=== PATIENT | male | born 1960 | race African-American/Black ===

== ENCOUNTER 2021-03-10 15:39 | Emergency (ER) | payer MEDICAID, OTHER ==
[~2021-03-10] VITALS: Ht 177.8 cm; Wt 70.3 kg
[2021-03-10 16:53] LABS: Basophils # (auto) 0 10 ^3/uL (0-0.2); Basophils % (auto) 0.6 % (0.0-2.0); Eosinophils # (auto) 0.1 10 ^3/uL (0-0.8); Eosinophils % (auto) 0.7 % (0.0-7.0); Hematocrit 43.8 % (41.0-53.0); Hemoglobin 15.2 g/dL (13.5-17.5); Lymphocytes % (auto) 25.8 % (10.0-50.0); Mean Corpuscular Hemoglobin 34.1 pg (28.0-32.0); Mean Corpuscular Hgb Conc. 34.7 g/dL (32.0-36.0); Mean Corpuscular Volume 98.3 fL (80.0-100.0); Monocytes # (auto) 0.8 10 ^3/uL (0-1.3); Neutrophils % (auto) 62.9 % (37.0-80.0); Nucleated Red Blood Cells % 0.1 %; Red Blood Cells 4.45 10^6/uL (4.5-5.90); Red Cell Distribution Width 12.8 % (11.8-14.3); White Blood Cell 7.9 10^3/uL (4.4-10.8)
[2021-03-10 17:13] LABS: Albumin 4.2 g/dL (3.4-5.0); Potassium 3.6 mmol/L (3.5-5.1)
[2021-03-10 17:17] LABS: BUN/Creatinine Ratio 14.6; Bilirubin, Total 1.2 mg/dL (0.2-1.0)
[2021-03-10] MEDS ORDERED: ACETAMINOPHEN 325 MG TAB PO ONE (20:00)
[2021-03-11 03:20] VITALS: BP 138/69
== END 2021-03-11 03:26 | disposition home or self-care (01) ==
LOC: ER 15:39
DX: K64.9 Unspecified hemorrhoids (principal); R06.00 Dyspnea, unspecified
CPT/HCPCS: 36415; 71045; 80053; 85025; 93005

== ENCOUNTER 2024-11-25 18:37 | Emergency (ER) | payer MEDICAID ==
[~2024-11-25] VITALS: Ht 175.3 cm; Wt 64.1 kg
--- NOTE | 2024-11-25 19:54 | ED.PDOC ---
History of Present Illness HPI Comments 64-year-old male who came to ER for weakness. Patient coming in with multiple complaints. States he a the ground level fall around 3:00 p.m. today, fell on his feet and his back area. Denies any head trauma or loss of consciousness. Complaining of left-sided tinnitus for over 3 days. Complaining of headaches, slurring of speech, dizziness, and near syncopal attacks. Denies any acute chest pains or shortness a breath. Patient currently applying otic drops to his left ear. REVIEW OF SYSTEMS: General: No fever, no chills, or fatigue HEENT: No sore throat, no earache, (+) left tinnitus, no congestion, no neck pain. Cardiac: No chest pain. No palpitations. Lungs: No shortness of breath, no cough. GI: No nausea, no vomiting, no diarrhea, no constipation, no abdominal pain : No dysuria, frequency, or urgency. No hematuria. Musculoskeletal: No joint pain , no joint swelling, no extremity edema. Skin: No rash, no itching. Neuro: (+) headache, (+) dizziness, (+) weakness EXAM: General: Awake, alert and oriented. No acute distress. Skin: Skin in warm, dry and intact. Appropriate color for ethnicity. HEENT: The head is normocephalic and atraumatic. Conjunctivae are clear without exudates or hemorrhage. Sclera is non-icteric. EOM are intact. No signs of nystagmus. Eyelids are normal in appearance without swelling or lesions. Oral mucosa is pink and moist Neck: The neck is supple with normal range of motion. No JVD. Cardiac: Heart rate and rhythm are normal. No murmurs, gallops, or rubs are aus cultated. Respiratory: No signs of respiratory distress. Lung sounds are clear in all lobes bilaterally without rales, rhonchi, or wheezes. Abdominal: Abdomen is soft, non-tender without distention. Bowel sounds are present and normoactive in all four quadrants. Extremities: Upper and lower extremities are atraumatic in appearance without deformity or edema. Neurological: The patient is awake, alert and oriented to person, place, and time with normal speech. Speech is clear. There is no facial asymmetry. Sensation intact bilaterally. No upper or lower extremity drift. Normal gait. Psychiatric: Appropriate mood and affect. Good judgement and insight Chief Complaint: General Weakness Time Seen by MD: 19:52 Reviewed Notes: Nurses Notes Allergies: Coded Allergies: NO KNOWN ALLERGIES (Unverified , 03/11/21) Home Meds Active Scripts Carbamide Peroxide (Ear Drops) 6.5 % Claudia, 6.5 % OT BID for 4 Days, #15 ML 10 drops left ear twice daily x 4 days Prov:HERIBERTO SHARPE MD 11/25/24 Ibuprofen (Ibuprofen) 600 Mg Tab, 1 TAB PO TID, #15 TAB Prov:HERIBERTO SHARPE MD 11/25/24 Acetaminophen (Acetaminophen Er) 650 Mg Tab, 650 MG PO TIDPRN PRN, #15 TAB Prov:HERIBERTO SHARPE MD 11/25/24 Information Source: Patient Mode of Arrival: Ambulatory Past Medical History PAST MEDICAL HISTORY: Arthritis, Depression Surgical History: Denies all surgeries Family History Family History: Reviewed,noncontributory to illness Social History Smoker: Non-Smoker Alcohol: Denies ETOH Use Drugs: Denies Drug Use Lives In: Assisted Care Was a procedure done? Was a procedure done?: No Differential Dx Considerations may include: Differential diagnoses considered include but are not limited to cardiac structural disease, arrhythmia, acute coronary syndrome, orthostasis, pulmonary embolism, dissection, seizure, basilar stroke, other. X-Ray, Labs, Meds, VS Vital Signs Date Time Temp Pulse Resp B/P (MAP) Pulse Ox O2 Delivery O2 Flow Rate FiO2 11/25/24 21:11 98.2 67 16 118/76 (90) 96 98.2 11/25/24 18:39 97.8 79 16 102/76 97 97.8 Lab Test 11/25/24 21:00 11/25/24 20:09 Range/Units Troponin I High Sensitivity 4 4 </=54 ng/L White Blood Count 6.5 4.4-10.8 10^3/uL Red Blood Count 4.27 L 4.5-5.90 10^6/uL Hemoglobin 15.2 13.5-17.5 g/dL Hematocrit 43.0 41.0-53.0 % Mean Corpuscular Volume 100.6 H 80.0-100.0 fL Mean Corpuscular Hemoglobin 35.5 H 28.0-32.0 pg Mean Corpuscular Hemoglobin Concent 35.3 32.0-36.0 g/dL Red Cell Distribution Width 12.9 11.8-14.3 % Platelet Count 250 140-450 10^3/uL Mean Platelet Volume 8.2 6.9-10.8 fL Neutrophils (%) (Auto) 55.9 37.0-80.0 % Lymphocytes (%) (Auto) 32.1 10.0-50.0 % Monocytes (%) (Auto) 9.9 0.0-12.0 % Eosinophils (%) (Auto) 1.2 0.0-7.0 % Basophils (%) (Auto) 0.9 0.0-2.0 % Neutrophils # (Auto) 3.6 1.6-8.6 10 ^3/uL Lymphocytes # (Auto) 2.1 0.4-5.4 10 ^3/uL Monocytes # (Auto) 0.6 0-1.3 10 ^3/uL Eosinophils # (Auto) 0.1 0-0.8 10 ^3/uL Basophils # (Auto) 0.1 0-0.2 10 ^3/uL Nucleated Red Blood Cells 0.1 % Sodium Level 139 136-145 mmol/L Potassium Level 3.8 3.5-5.1 mmol/L Chloride Level 108 H 98-107 mmol/L Carbon Dioxide Level 23 20-31 mmol/L Anion Gap 8 5-15 Blood Urea Nitrogen 7 L 9-23 mg/dL Creatinine 0.85 0.700-1.30 mg/dL Glomerular Filtration Rate Calc 97 >90 mL/min BUN/Creatinine Ratio 8.2 L 10.0-20.0 Serum Glucose 80 74-106 mg/dL Calcium Level 9.1 8.7-10.4 mg/dL B-Type Natriuretic Peptide 6.30 0-100 pg/mL Current Medications Medications (Trade) Dose Ordered Sig/Ondina Route Start Time Stop Time Status Last Admin Ketorolac Tromethamine (Toradol Injection) 30 mg ONCE ONCE IM 11/25/24 19:45 11/25/24 19:47 DC 11/25/24 21:10 Tramadol HCl (Ultram) 50 mg ONCE ONCE PO 11/25/24 19:45 11/25/24 19:47 DC 11/25/24 21:09 Acetaminophen (Tylenol Tablet) 650 mg ONCE ONCE PO 11/25/24 19:45 11/25/24 19:47 DC 11/25/24 21:09 PATIENT: ANNITA PATELACCT: [id number]: [id number] : 1960 LOC: ER ROOM / BED: / AGE / SEX: 64 / M ADM STATUS: REG ER SERVICE 50 ORDERING PHYSICIAN: HERIBERTO SHARPE MD PROCEDURE(s): HWOCT - HEAD WITHOUT CONTRAST REASON: Dizziness, presyncopal ORDER NUMBER(s): [id number], ACCESSION NUMBER(s): [id number] EXAM: CT HEAD WITHOUT CONTRAST INDICATION: Dizziness, presyncopal TECHNIQUE: CT of the head without intravenous contrast. Radiation Dose Information: CT Dose: CTDI volume is 57.68 mGy. Dose-length product is 1021 0.39 mGy*cm The dose indicators for CT are the volume Computed Tomography (CT) Dose Index (CTDIvol) and the Dose Length Product (DLP), and are measured in units of mGy and mGy-cm, respectively. These indicators are not patient dose, but values generated from the CT scanner acquisition factors. The report includes radiation exposure data for exposures received during this examination. COMPARISON: None FINDINGS: There is no evidence of acute intracranial hemorrhage, extra-axial collection, mass effect, midline shift, herniation or hydrocephalus. The ventricles, sulci and cisterns are age appropriate. The carter-white differentiation is intact. Patchy periventricular and subcortical white matter hypoattenuation is nonspecific but may be related to small vessel ischemic disease. Air-fluid levels noted in the left maxillary sinus sinuses and mastoid air cells are clear. The surrounding soft tissues and osseous structures are unremarkable. IMPRESSION: 1. No acute intracranial abnormality. PATIENT: ANNITA PATEL ACCT: [id number] UNIT: [id number] : 1960 LOC: ER ROOM / BED: / AGE / SEX: 64 / M ADM STATUS: REG ER SERVICE 43 ORDERING PHYSICIAN: HERIBERTO SHARPE MD PROCEDURE(s): CXR1 - CHEST XRAY 1 VIEW REASON: dizziness ORDER NUMBER(s): [id number], ACCESSION NUMBER(s): [id number] CHEST RADIOGRAPH Indication: dizziness Technique: Single frontal view of the chest was obtained Comparison: CHEST PORTABLE on DOS: 03/10/21 FINDINGS: Lines and Tubes: None Lungs: No focal consolidation. Pleura: No effusion. No pneumothorax. Cardiomediastinal contours: Unremarkable Bones: No acute osseous abnormality. IMPRESSION: 1. No acute cardiopulmonary disease. ATED BY: TANIKA ADEN Jr., DO DICTATED DATE/TIME: 11/25/242033 SIGNED BY: TANIKA ADEN Jr., SIGNED DATE/TIME: 11/25/242033 CC: Time of 1ST Reevaluation: 19:49 Reevaluation 1ST: Unchanged Patient Education/Counseling: Need For Follow Up Family Education/Counseling: No Family Present SEPSIS Sepsis Screen Date sepsis recognized/suspect: Nov 25, 2024 Time Sepsis recognized/suspect: 1840 Recent Procedure: No On Antibiotic Therapy: No Respiratory Rate >20: No Heart Rate >90: No Temp<36 C (96.8 F) or >38.3 C: No SBP <90 or MAP <65 mmHG: No New Acute Mental Status Change: No Is the patient on CPAP, BIPAP,: No Physician Orders Chest Xray 1 View (11/25/24 19:44) Electrocardigram (11/25/24 19:44) Electrocardigram (11/25/24 20:44) Electrocardigram (11/25/24 22:44) Head Without Contrast (11/25/24 19:51) Vital Signs Date Time Temp Pulse Resp B/P (MAP) Pulse Ox O2 Delivery O2 Flow Rate FiO2 11/25/24 21:11 98.2 67 16 118/76 (90) 96 98.2 11/25/24 18:39 97.8 79 16 102/76 97 97.8 Laboratory Tests Test 11/25/24 20:09 White Blood Count 6.5 10^3/uL (4.4-10.8) Medications Medications Dose Ordered Sig/Ondina Route Start Time Stop Time Status Last Admin Dose Admin Acetaminophen 650 mg ONCE ONCE PO 11/25/24 19:45 11/25/24 19:47 DC 11/25/24 21:09 Ketorolac Tromethamine 30 mg ONCE ONCE IM 11/25/24 19:45 11/25/24 19:47 DC 11/25/24 21:10 Tramadol HCl 50 mg ONCE ONCE PO 11/25/24 19:45 11/25/24 19:47 DC 11/25/24 21:09 Departure 1 Departure Time of Disposition: 22:48 Impression: Primary Impression: Dizziness Additional Impressions: Back pain Impacted cerumen Disposition: 01 HOME / SELF CARE / HOMELESS Condition: Stable Additional Instructions: ED DISCHARGE INSTRUCTIONS Instructions: Please read all instructions provided in this packet carefully. Although you have been discharged from the Emergency Department, this does not mean that you have a "clean bill of health". No definitive diagnosis for your symptoms has been made today. It is possible that you are in the process of developing a serious illness. This is why you must return to the ED without fail if any new or worsening symptoms (especially if your symptoms include chest pain, trouble breathing, abdominal pain, fever, headache, confusion, trouble seeing, or trouble walking) It is also very important that you see a primary care provider (PCP) within the next 1-3 days to follow up. If you are unable to get an appointment, return to the ED for re-evaluation. Lightheadedness or Faintness: Care Instructions Overview Lightheadedness is a feeling that you are about to faint or "pass out." You do not feel as if you or your surroundings are moving. It is different from vertigo , which is the feeling that you or things around you are spinning or tilting. Lightheadedness usually goes away or gets better when you lie down. If lightheadedness gets worse, it can lead to a fainting spell. It is common to feel lightheaded from time to time. It may be caused by many things. These include allergies, dehydration, illness, and medicines. Lightheadedness usually is not caused by a serious problem. It often is caused by a short-lasting drop in blood pressure and blood flow to your head that occurs when you get up too quickly from a seated or lying position. Follow-up care is a mendez part of your treatment and safety. Be sure to make and go to all appointments, and call your doctor if you are having problems. It's also a good idea to know your test results and keep a list of the medicines you take. How can you care for yourself at home? Lie down for 1 or 2 minutes when you feel lightheaded. After lying down, sit up slowly and remain sitting for 1 to 2 minutes before slowly standing up. Avoid movements, positions, or activities that have made you lightheaded in the past. Get plenty of rest, especially if you have a cold or flu, which can cause lightheadedness. Make sure you drink plenty of fluids, especially if you have a fever or have been sweating. Do not drive or put yourself and others in danger while you feel lightheaded. When should you call for help? Call 911 anytime you think you may need emergency care. For example, call if: You passed out (lost consciousness). You have symptoms of a stroke. These may include: Sudden numbness, tingling, weakness, or loss of movement in your face, arm, or leg, especially on only one side of your body. Sudden vision changes. Sudden trouble speaking. Sudden confusion or trouble understanding simple statements. Sudden problems with walking or balance. A sudden, severe headache that is different from past headaches. You have symptoms of a heart attack. These may include: Chest pain or pressure, or a strange feeling in the chest. Sweating. Shortness of breath. Nausea or vomiting. Pain, pressure, or a strange feeling in the back, neck, jaw, or upper belly or in one or both shoulders or arms. Lightheadedness or sudden weakness. A fast or irregular heartbeat. After you call 911, the ferryboat operator may tell you to chew 1 adult-strength or 2 to 4 low-dose aspirin. Wait for an ambulance. Do not try to drive yourself. Watch closely for changes in your health, and be sure to contact your doctor if: Your lightheadedness gets worse or does not get better with home care. Credits for Lightheadedness or Faintness: Care Instructions Current as of: October 08, 2023 Author: [email or web address] Staff Clinical Review Board All [employer] education is reviewed by a team that includes physicians, nurses, advanced practitioners, registered dieticians, and other healthcare professionals. e-Prescriptions Carbamide Peroxide (Ear Drops) 6.5 % Claudia 6.5 % OT BID for 4 Days, #15 ML 10 drops left ear twice daily x 4 days Prov: HERIBERTO SHARPE MD 11/25/24 Ibuprofen (Ibuprofen) 600 Mg Tab 1 TAB PO TID, #15 TAB Prov: HERIBERTO SHARPE MD 11/25/24 Acetaminophen (Acetaminophen Er) 650 Mg Tab 650 MG PO TIDPRN PRN, #15 TAB Prov: HERIBERTO SHARPE MD 11/25/24 Comments MDM: 64-year-old male who presented with dizziness EKG negative for signs of ischemia. High sensitivity troponin negative. CXR shows no acute process. CT head shows no acute process No neuro deficit on exam Presentation not suggestive of acute coronary syndrome, pulmonary embolism or aortic dissection, CVA. Patient improved at time of discharge. Patient has not been hypoxic, in respiratory distress or dyspneic during the ED observation. Patient able to ambulate without difficulty. Patient felt stable for discharge to follow up with PCP promptly. Patient advised to return to the ED with any new, worsening or concerning symptoms or inability to follow up with PCP. --- I reviewed the following notes from the pt's past medical encounters: N/A The following tests were ordered, and results were reviewed by me: (See diagnostic results section) The following test were independently interpreted by me: EKG Additional information was gathered from interviewing the following independent historians: N/A I reviewed and agreed with the following test results read by other providers: CT head I discussed treatments and results with patient Decision regarding hospitalization or escalation of hospital level of care: Risks and benefits of admission for further treatment of patient's condition was considered however due to patient's stable condition patient will be discharged to follow up closely or return to care for worsening of condition or inability to follow up. Critical Care Note Critical Care Time?: No Stability Stability form required: No Heart Score Heart Score: Heart Score Response (Comments) Value History N/A 0 EKG N/A 0 Age N/A 0 Risk Factors N/A 0 Troponin N/A 0 Total 0 I personally scribed for HERIBERTO SHARPE MD ([email or web address]) on 11/25/24 at 19:54. Electronically submitted by Keagan Almodovar ([email or web address]). HERIBERTO SHARPE MD Nov 25, 2024 19:54
[2024-11-25 20:25] LABS: Nucleated Red Blood Cells % 0.1 %
[2024-11-25 20:27] LABS: Hematocrit 43.0 % (41.0-53.0); Hemoglobin 15.2 g/dL (13.5-17.5); Mean Corpuscular Hemoglobin 35.5 pg (28.0-32.0); Mean Corpuscular Volume 100.6 fL (80.0-100.0)
[2024-11-25 20:37] LABS: Potassium 3.8 mmol/L (3.5-5.1); Sodium 139 mmol/L (136-145)
--- NOTE | 2024-11-25 20:37 | DVH ---
CHEST RADIOGRAPH Indication: dizziness Technique: Single frontal view of the chest was obtained Comparison: CHEST PORTABLE on DOS: 03/10/21 FINDINGS: Lines and Tubes: None Lungs: No focal consolidation. Pleura: No effusion. No pneumothorax. Cardiomediastinal contours: Unremarkable Bones: No acute osseous abnormality. IMPRESSION: 1. No acute cardiopulmonary disease.
[2024-11-25 20:38] LABS: Anion Gap 8 (5-15); Calcium 9.1 mg/dL (8.7-10.4); Carbon Dioxide 23 mmol/L (20-31)
[2024-11-25 20:43] LABS: BUN/Creatinine Ratio 8.2 (10.0-20.0); Glucose 80 mg/dL (74-106)
--- NOTE | 2024-11-25 20:45 | DVH ---
EXAM: CT HEAD WITHOUT CONTRAST INDICATION: Dizziness, presyncopal TECHNIQUE: CT of the head without intravenous contrast. Radiation Dose Information: CT Dose: CTDI volume is 57.68 mGy. Dose-length product is 1021 0.39 mGy*c m The dose indicators for CT are the volume Computed Tomography (CT) Dose Index (CTDIvol) and the Dose Length Product (DLP), and are measured in units of mGy and mGy-cm, respectively. These indicators are not patient dose, but values generated from the CT scanner acquisition factors. The report includes radiation exposure data for exposures received during this examination. COMPARISON: None FINDINGS: There is no evidence of acute intracranial hemorrhage, extra-axial collection, mass effect, midline s hift, herniation or hydrocephalus. The ventricles, sulci and cisterns are age appropriate. The carter-white differentiation is intact. Patchy periventricular and subcortical white matter hypoattenuation is nonspecific but may be related to small vessel ischemic disease. Air-fluid levels noted in the left maxillary sinus sinuses and mastoid air cells are clear. The surrounding soft tissues and osseous structures are unremarkable. IMPRESSION: 1. No acute intracranial abnormality.
[2024-11-25] MEDS: ACETAMINOPHEN 325 MG TAB PO ONE (21:09)
[2024-11-25 21:10] LABS: Blood Urea Nitrogen 7 mg/dL (9-23); Chloride 108 mmol/L (98-107)
[2024-11-25] MEDS: KETOROLAC TROMETH 30 MG/ML 1ML VIAL IM ONE (21:10)
[2024-11-25] MEDS ORDERED: CARB1DRO18 OT (21:14)
[2024-11-25] MEDS ORDERED: IBUP-1454 PO (21:14)
[2024-11-25] MEDS ORDERED: ACET650T12 PO (21:14)
[2024-11-25 22:52] VITALS: BP 124/64; PULSE 59; RESP 20; TEMP 97.9; O2SAT 98
== END 2024-11-25 22:54 | disposition home or self-care (01) ==
LOC: ER 18:37
DX: H61.22 Impacted cerumen, left ear (principal); R42 Dizziness and giddiness; M54.9 Dorsalgia, unspecified; F32.A Depression, unspecified; M19.90 Unspecified osteoarthritis, unspecified site; Z79.1 Long term (current) use of non-steroidal anti-inflammatories (NSAID); Z79.899 Other long term (current) drug therapy
CPT/HCPCS: 36415; 70450; 71045; 80048; 83880; 84484; 85025; 96372; 99285; J1885